=== PATIENT | female | born 2000 | race Two or more races ===

== ENCOUNTER 2024-04-28 01:21 | Emergency (ER) | payer OTHER ==
[~2024-04-28] VITALS: Ht 157.5 cm; Wt 100.0 kg
[2024-04-28 01:53] LABS: Basophils # (auto) 0 10 ^3/uL (0-0.2); Basophils % (auto) 0.4 % (0.0-2.0); Calcium 10.6 mg/dL (8.7-10.4); Carbon Dioxide 27 mmol/L (20-31); Eosinophils # (auto) 0 10 ^3/uL (0-0.8); Eosinophils % (auto) 0.5 % (0.0-7.0); Hematocrit 43.2 % (36.0-46.0); Hemoglobin 14.8 g/dL (12.2-16.2); Lymphocytes # (auto) 2.9 10 ^3/uL (0.4-5.4); Lymphocytes % (auto) 29.3 % (10.0-50.0); Mean Corpuscular Hemoglobin 29.5 pg (28.0-32.0); Mean Corpuscular Hgb Conc. 34.3 g/dL (32.0-36.0); Monocytes # (auto) 0.7 10 ^3/uL (0-1.3); Monocytes % (auto) 7.4 % (0.0-12.0); Neutrophils # (auto) 6.2 10 ^3/uL (1.6-8.6); Neutrophils % (auto) 62.4 % (37.0-80.0); Nucleated Red Blood Cells % 0.1 %; Platelet Count (auto) 230 10^3/uL (140-450); Red Blood Cells 5.02 10^6/uL (4.0-5.20); Red Cell Distribution Width 12.9 % (11.8-14.3)
[2024-04-28 01:54] LABS: Chloride 108 mmol/L (98-107); Sodium 139 mmol/L (136-145)
--- NOTE | 2024-04-28 01:54 | ED.PDOC ---
History of Present Illness HPI Comments 23-year-old female presents with a chief complaint of throat pain x 3 days, radiating to her upper chest, associated with difficulty breathing. Patient states that her throat has been painful for the past x 3 days. Patient mentions that she is able to swallow and eat/drink. Patient is sating at 100% on room air and able to speak in full complete sentences. No other symptoms or modifying factors present at this time. Chief Complaint: Chest Pain Time Seen by MD: 01:34 Primary Care Provider: Zehra Gonzalez Notes: Medications, Allergies Allergies: Coded Allergies: NO KNOWN ALLERGIES (Unverified , 04/28/24) Information Source: Patient Mode of Arrival: Ambulatory Severity: Moderate Timing: Days Duration: Since onset Prehospital treatment: None Past Medical History PAST MEDICAL HISTORY: Denies Surgical History: Appendectomy, Cholecystectomy SECURITY AND COMPLIANCE ANALYST History: Denies all SECURITY AND COMPLIANCE ANALYST Hx Family History Family History: Reviewed,noncontributory to illness Social History Smoker: Non-Smoker Alcohol: Denies ETOH Use Drugs: Denies Drug Use Lives In: Home Constitutional: denies: chills, diaphoresis, fatigue, fever, malaise, sweats, weakness, others EENTM: reports: throat pain; denies: blurred vision, double vision, ear bleeding, ear discharge, ear drainage, ear pain, ear ringing, eye pain, eye redness, hearing loss, mouth pain, mouth swelling, nasal discharge, nose bleeding, nose congestion, nose pain, photophobia, tearing, throat swelling, voice changes, others Respiratory: denies: cough, hemoptysis, orthopnea, SOB at rest, shortness of breath, SOB with excertion, stridor, wheezing, others Cardiovascular: denies: chest pain, dizzy spells, diaphoresis, Dyspnea on exertion, edema, irregular heart beat, left arm pain, lightheadedness, palpitations, PND, syncope, others Gastrointestinal: denies: abdomen distended, abdominal pain, blood streaked bowels, constipated, diarrhea, dysphagia, difficulty swallowing, hematemesis, melena, nausea, poor appetite, poor fluid intake, rectal bleeding, rectal pain, vomiting, others Genitourinary: denies: abnormal vagina bleeding, burning, dyspareunia, dysuria, flank pain, frequency, hematuria, incontinence, pain, , vagina discharge, urgency, others Neurological: denies: dizziness, fainting, headache, left sided numbness, left sided weakness, numbness, paresthesia, pre-existing deficit, right sided numbness, right sided weakness, seizure, speech problems, tingling, tremors, weakness, others Musculoskeletal: denies: back pain, gout, joint pain, joint swelling, muscle pain, muscle stiffness, neck pain, others Integumetry: denies: bruises, change in color, change in hair/nails, dryness, laceration, lesions, lumps, rash, wounds, others Allergic/Immunocompromised: denies: Difficulty Healing, Frequent Infections, Hives, Itching, others Hematologic/Lymphatic: denies: anemia, blood clots, easy bleeding, easy bruising, swollen glands, others Endocrine: denies: excessive hunger, excessive sweating, excessive thirst, excessive urination, flushing, intolerance to cold, intolerance to heat, unexplained weight gain, unexplained weight loss, others Psychiatric: denies: anxiety, bipolar disorder, depression, hopeless, panic disorder, schizophrenia, sleepless, suicidal, others All Other Systems: Reviewed and Negative Physical Exam General Appearance: No Apparent Distress, Obese HEENT: Normal ENT Inspection, Pharyngeal Erythema (mild) Neck: Full Range of Motion, Normal Inspection Respiratory: Lungs Clear, No Accessory Muscle Use, No Respiratory Distress, No rmal Breath Sounds Cardiovascular: No Edema, No JVD, Regular Rate/Rhythm Breast Exam: Deferred Gastrointestinal: Non Tender, Soft Genitalia: Deferred Pelvic: Deferred Rectal: Deferred Extremities: Normal inspection, Normal range of motion, Non-tender, No pedal edema Neurologic: Alert, No Motor Deficits, Normal Affect, Normal Mood, No Sensory Deficits Cerebellar Function: NOT DONE Reflexes: NOT DONE Skin: Dry, Normal Color, Warm Lymphatic: NOT DONE Was a procedure done? Was a procedure done?: No EKG EKG : Comments Sinus rhythm, rate 68, normal intervals, normal axis, normal QRS, nonspecific T change. Differential Dx Considerations may include: Pharyngitis, tonsillitis, asthma, bronchitis, COPD, CHF, pneumonia, arrhythmia, ACS, SC, among others X-Ray, Labs, Meds, VS Vital Signs Date Time Temp Pulse Resp B/P (MAP) Pulse Ox O2 Delivery O2 Flow Rate FiO2 04/28/24 04:53 98.4 62 16 114/61 (78) 97 98.4 04/28/24 02:19 Room Air* 0 21 04/28/24 02:19 20 98 Room Air* 0 21 04/28/24 01:29 98.1 70 18 121/84 (96) 96 04/28/24 01:28 68 Lab Test 04/28/24 02:30 04/28/24 01:32 Range/Units Troponin I High Sensitivity < 3 L < 3 L </=34 ng/L White Blood Count 10.0 4.4-10.8 10^3/uL Red Blood Count 5.02 4.0-5.20 10^6/uL Hemoglobin 14.8 12.2-16.2 g/dL Hematocrit 43.2 36.0-46.0 % Mean Corpuscular Volume 86.0 80.0-100.0 fL Mean Corpuscular Hemoglobin 29.5 28.0-32.0 pg Mean Corpuscular Hemoglobin Concent 34.3 32.0-36.0 g/dL Red Cell Distribution Width 12.9 11.8-14.3 % Platelet Count 230 140-450 10^3/uL Mean Platelet Volume 9.6 6.9-10.8 fL Neutrophils (%) (Auto) 62.4 37.0-80.0 % Lymphocytes (%) (Auto) 29.3 10.0-50.0 % Monocytes (%) (Auto) 7.4 0.0-12.0 % Eosinophils (%) (Auto) 0.5 0.0-7.0 % Basophils (%) (Auto) 0.4 0.0-2.0 % Neutrophils # (Auto) 6.2 1.6-8.6 10 ^3/uL Lymphocytes # (Auto) 2.9 0.4-5.4 10 ^3/uL Monocytes # (Auto) 0.7 0-1.3 10 ^3/uL Eosinophils # (Auto) 0 0-0.8 10 ^3/uL Basophils # (Auto) 0 0-0.2 10 ^3/uL Nucleated Red Blood Cells 0.1 % Sodium Level 139 136-145 mmol/L Potassium Level 4.0 3.5-5.1 mmol/L Chloride Level 108 H 98-107 mmol/L Carbon Dioxide Level 27 20-31 mmol/L Anion Gap 4 L 5-15 Blood Urea Nitrogen 15 9-23 mg/dL Creatinine 0.87 0.550-1.02 mg/dL Glomerular Filtration Rate Calc 95 >90 mL/min BUN/Creatinine Ratio 17.2 10.0-20.0 Serum Glucose 94 74-106 mg/dL Calcium Level 10.6 H 8.7-10.4 mg/dL B-Type Natriuretic Peptide 11.15 0-100 pg/mL Beta HCG, Quantitative < 0.0 L 1.5-4.2 mIU/mL Current Medications Medications (Trade) Dose Ordered Sig/Chiki Route Start Time Stop Time Status Last Admin Albuterol (Ventolin Medneb) 5 mg ONCE ONCE NEB 04/28/24 01:45 04/28/24 01:46 DC 04/28/24 02:18 Ipratropium [place] (Atrovent Medneb) 0.5 mg ONCE ONCE NEB 04/28/24 01:45 04/28/24 01:46 DC 04/28/24 02:18 Ketorolac Tromethamine (Toradol Injection) 60 mg ONCE ONCE IM 04/28/24 01:45 04/28/24 01:46 DC 04/28/24 04:53 PROCEDURE(s): CXR1 - CHEST XRAY 1 VIEW REASON: cp ORDER NUMBER(s): [id number], ACCESSION NUMBER(s): [id number] Examination: CXR1 Clinical Indication: cp Comparison: None. Technique: Frontal radiograph of the chest were obtained. Findings: Lungs are clear and well expanded with no pulmonary infiltrate or pleural effusion. There is no pneumothorax. The cardiomediastinal silhouette is within normal limits. No acute osseous abnormality is seen. Impression: No acute cardiopulmonary disease is seen. Electronically Signed 04/28/2024 02:58 Mehran Elliott X-Ray, Labs, Meds, VS Comment 23-year-old female with no significant past medical history complaining of throat pain radiating to the upper chest, associated with difficulty breathing Vitals unremarkable Exam remarkable for mild pharyngeal erythema without edema, exudate or uvular deviation EKG sinus rhythm, no ST/T changes Chest x-ray unremarkable CBC, basic metabolic panel, BNP and serial troponins unremarkable for any abnormality of acute significance Patient was treated with the following in the ED: Albuterol 5 mg/Atrovent 0.5 mg nebulized, Toradol 60 mg IM On re-evaluation, patient stated her pain had improved, vitals were stable, and she was in no respiratory distress. Hospitalization was considered, however the patient had rapid improvement with treatment in the ED, and I no longer feel hospitalization is necessary. Patient appears stable for outpatient follow-up. Rx ibuprofen, Augmentin Time of 1ST Reevaluation: 02:04 Reevaluation 1ST: Unchanged Time of 2ND Reevaluation: 05:00 Reevaluation 2ND: Improved Patient Education/Counseling: Diagnosis, Treatment, Prognosis Family Education/Counseling: No Family Present Departure 1 Departure Time of Disposition: 05:00 Impression: Primary Impression: Pharyngitis Qualified Codes: J02.9 - Acute pharyngitis, unspecified Disposition: HOME / SELF CARE / HOMELESS Condition: Stable Additional Instructions: Your blood tests were essentially unremarkable. Your chest x-ray was normal. Your EKG was normal. I have prescribed antibiotics for a possible throat infection, as well as pain medication. Follow-up with your primary doctor in 1- 2 days. e-Prescriptions Ibuprofen Micronized (Ibuprofen) 800 Mg Tab 800 MG PO Q8HP PRN, #30 TAB Prov: MANN DOW MD 04/28/24 Amoxicillin & Pot Clavulanate (AUGMENTIN TABLET) 875 Mg Tb 875 MG PO BID for 10 Days, #20 TAB Prov: MANN DOW MD 04/28/24 Discharged With: Relative Critical Care Note Critical Care Time?: No Stability Stability form required: No I personally scribed for MANN DOW MD ([email or web address]) on 04/28/24 at 01:54. Electronically submitted by Deepak Rivera ([email or web address]). MANN DOW MD Apr 28, 2024 01:54
[2024-04-28 01:58] LABS: BUN/Creatinine Ratio 17.2 (10.0-20.0); Blood Urea Nitrogen 15 mg/dL (9-23); Glucose 94 mg/dL (74-106)
[2024-04-28 01:59] LABS: Anion Gap 4 (5-15)
[2024-04-28] MEDS: ALBUTEROL SULF 2.5 MG/0.5ML(0.5%) NEB SOLN NEB ONE (02:18)
[2024-04-28] MEDS: IPRATROPIUM BROM 0.5 MG/2.5ML INH SOL NEB ONE (02:18)
--- NOTE | 2024-04-28 03:06 | DVH ---
Examination: CXR1 Clinical Indication: cp Comparison: None. Technique: Frontal radiograph of the chest were obtained. Findings: Lungs are clear and well expanded with no pulmonary infiltrate or pleural effusion. There is no pneumothorax. The cardiomediastinal silhouette is within normal limits. No acute osseous abnormality is seen. Impression: No acute cardiopulmonary disease is seen. Electronically Signed 04/28/2024 02:58 Mehran Elliott
[2024-04-28 04:53] VITALS: BP 114/61; PULSE 62; RESP 16; TEMP 98.4; O2SAT 97
[2024-04-28] MEDS: KETOROLAC TROMETH 60MG/2ML VIAL IM ONE (04:53)
[2024-04-28] MEDS ORDERED: AUG875T PO (05:01)
[2024-04-28] MEDS ORDERED: IBUP-1455 PO (05:01)
--- NOTE | 2024-04-29 09:45 | ECG ---
[facility] Test Date: 2024-04-28 Test Time: 01:28:27 Pat Name: PADMA PERERIA Department: ER Room: Gender: F Mother Repairer: AN : 2000 Requested By: MANN MANLEY Order Number: [id number] Reading MD: Measurements Intervals [place] Rate: 68 P: 53 [place]: 140 QRS: 50 QRSD: 89 T: 15 QT: 383 QTc: 408 Interpretive Statements Sinus rhythm Borderline Q waves in inferior leads Baseline wander in lead(s) III,aVF Please click the below link to view image of tracing.
== END 2024-04-28 05:14 | disposition left against medical advice (07) ==
LOC: ER 01:21
DX: J02.9 Acute pharyngitis, unspecified (principal); R10.2 Pelvic and perineal pain; R07.9 Chest pain, unspecified; R06.02 Shortness of breath; Z90.49 Acquired absence of other specified parts of digestive tract
CPT/HCPCS: 36415; 71045; 80048; 83880; 84484; 84702; 85025; 93005; 94640; 96372; 99285; J1885